=== PATIENT | male | born 2000 | race Caucasian/White ===

== ENCOUNTER 2023-04-04 15:29 | Emergency (ER) | payer SELFPAY ==
[2023-04-04] MEDS ORDERED: Acetaminophen 500 MG TAB ONE (16:15)
== END 2023-04-04 17:55 | disposition home or self-care (01) ==
LOC: ERS 15:29
DX: S05.12XA Contusion of eyeball and orbital tissues, left eye, initial encounter (principal); F17.290 Nicotine dependence, other tobacco product, uncomplicated; Y04.8XXA Assault by other bodily force, initial encounter
CPT/HCPCS: 70450; 70486; 76377